=== PATIENT | female | born 1995 | race Two or more races ===

== ENCOUNTER 2021-03-31 14:00 | Inpatient (IN) | payer OTHER ==
[~2021-03-31] VITALS: Ht 165.1 cm; Wt 109.3 kg
[2021-04-17] MEDS ORDERED: CHILDREN'S ASPI81 MG (18:10)
[2021-04-17] MEDS ORDERED: SYNTHROID125 MCG (18:10)
[2021-04-17] MEDS ORDERED: BRIMONIDINE 0.110 ML (18:10)
[2021-04-17] MEDS ORDERED: LATANOPROST2.5 ML (18:12)
[2021-04-17] MEDS ORDERED: LEVOBUNOLOL HCL5 ML (18:13)
[2021-04-17] MEDS ORDERED: PRENATAL CAPLE1 EAC1 (18:14)
== END 2021-04-20 13:37 | disposition home or self-care (01) | DRG 806 ==
LOC: SURH 04-10 14:00 → LDR 04-18 09:10 → SURG-SUITE 04-18 18:56
PROVIDERS: ADMIT Obstetrics & Gynecology; ATTEND Obstetrics & Gynecology
PROC: 10E0XZZ Delivery of Products of Conception, External Approach (ICD-10-PCS; principal; 2021-04-18)
PROC: 0UQGXZZ Repair Vagina, External Approach (ICD-10-PCS; 2021-04-18)
PROC: 0W8NXZZ Division of Female Perineum, External Approach (ICD-10-PCS; 2021-04-18)
PROC: 10907ZC Drainage of Amniotic Fluid, Therapeutic from Products of Conception, Via Natural or Artificial Opening (ICD-10-PCS; 2021-04-18)
PROC: 4A1HXFZ Monitoring of Products of Conception, Cardiac Rhythm, External Approach (ICD-10-PCS; 2021-04-18)
DX: O48.0 Post-term pregnancy (principal); O71.4 Obstetric high vaginal laceration alone; Z37.0 Single live birth; O99.824 Streptococcus B carrier state complicating childbirth; Z3A.41 41 weeks gestation of pregnancy

== ENCOUNTER 2021-04-17 16:21 | Outpatient (CLI) | payer OTHER ==
[2021-04-17] MEDS ORDERED: BRIMONIDINE 0.110 ML (18:10)
[2021-04-17] MEDS ORDERED: CHILDREN'S ASPI81 MG (18:10)
[2021-04-17] MEDS ORDERED: SYNTHROID125 MCG (18:10)
[2021-04-17] MEDS ORDERED: LATANOPROST2.5 ML (18:12)
[2021-04-17] MEDS ORDERED: LEVOBUNOLOL HCL5 ML (18:13)
[2021-04-17] MEDS ORDERED: PRENATAL CAPLE1 EAC1 (18:14)
== END 2021-04-18 10:58 | disposition still patient (30) ==
LOC: OBS/DEL 16:21
PROVIDERS: ATTEND Obstetrics & Gynecology
DX: O48.0 Post-term pregnancy (principal); Z3A.41 41 weeks gestation of pregnancy; Z20.822 Contact with and (suspected) exposure to COVID-19